=== PATIENT | male | born 1935 | race Caucasian/White ===

== ENCOUNTER 2017-01-11 15:26 | Emergency (ER) | payer OTHER ==
[~2017-01-11] VITALS: Ht 177.8 cm; Wt 105.4 kg
[2017-01-11 18:27] VITALS: BP 152/78
== END 2017-01-11 18:27 | disposition home or self-care (01) ==
LOC: ED 15:26
DX: L03.116 Cellulitis of left lower limb (principal); I10 Essential (primary) hypertension; Z79.899 Other long term (current) drug therapy